=== PATIENT | female | born 1990 | race Caucasian/White ===

== ENCOUNTER → 2020-01-13 09:36 | Outpatient (CLI) | payer OTHER, SELFPAY ==
[2020-01-13 11:06] LABS: Hematocrit 44.4 % (36-46); Hemoglobin 15.4 g/dL (12.0-16.0); Mean Corpuscular HGB Conc 34.7 % (30-36); Mean Corpuscular Hemoglobin 32.3 PG (26-34); Mean Corpuscular Volume 93.1 fL (80-100); Platelet Count 275 X10^3/uL (150-400); Red Blood Cell Count 4.77 X10^6/uL (4.0-5.2); Red Cell Distribution Width 13.7 % (11.6-14.8); White Blood Cell Count 10.9 X10^3/uL (4.5-11.0)
[2020-01-13 11:33] LABS: Alanine Aminotransferase 24 IU/L (<35); Albumin 4.7 g/dL (3.5-5.0); Albumin Globulin Ratio 1.4 (1.0-2.8); Alkaline Phosphatase 104 U/L (38-126); Aspartate Aminotransferase 37 IU/L (14-36); BUN Creatinine Ratio 13.6 (6-22); Bilirubin Total 0.7 mg/dL (0.2-1.3); Blood Urea Nitrogen 8 mg/dL (7-17); Calcium 9.7 mg/dL (8.4-10.2); Carbon Dioxide 31 mmol/L (22-32); Chloride 103 mmol/L (98-107); Estimated Glomerular Filt Rate > 60.0 mL/min (>60); Globulin 3.4 g/dL (1.7-4.1); Glucose 91 mg/dL (70-100); Potassium 4.4 mmol/L (3.4-5.1); Sodium 144 mmol/L (137-145); Total Protein 8.1 g/dL (6.3-8.2)
[2020-01-13 11:35] LABS: HEMOLYSIS 63 (0-50)
[2020-01-13 11:44] LABS: Add Manual Diff / Slide Review YES
[2020-01-13 11:55] LABS: TSH w/ Reflex to FT4 0.68 uIU/mL (0.47-4.68)
[2020-01-13 12:03] LABS: Hemoglobin A1C% w Est Avg Glu 5.4 % (4.0-6.0)
[2020-01-13 12:27] LABS: Neutrophils Absolute Manual 7848 /uL (3000-5900); RBC Morphology Normal Morphology; Total Cells Counted 100
[2020-01-14 17:56] LABS: Cholesterol 170 mg/dL (140-199); HDL Cholesterol 50 mg/dL (40-60); LDL Cholesterol Calculated 99 mg/dL (<100); Triglycerides 107 mg/dL (35-150)
[2020-01-15 11:36] LABS: Estriol <0.1 ng/mL (.)
== END ==
PROVIDERS: Referring Provider Nurse Practitioner; Visit Provider Nurse Practitioner
DX: Z87.890 Personal history of sex reassignment (principal)
CPT/HCPCS: 36415; 80053; 80061; 82677; 83036; 84403; 84443; 85025